=== PATIENT | female | born 1965 | race African-American/Black ===

== ENCOUNTER 2024-01-13 23:47 | Inpatient (IN) | payer OTHER ==
[2024-01-14] MEDS ORDERED: LOPERAMIDE HCL 2 MG CAPSULE PO PRN (00:20)
[2024-01-14] MEDS ORDERED: POLYETHYLENE GLYCOL (HEALTHYLAX) 3350 17 GM PACKET PO PRN (00:20)
[2024-01-14] MEDS ORDERED: BENZONATATE 200 MG CAPSULE PO PRN (00:20)
[2024-01-14] MEDS ORDERED: BENZOCAINE/MENTHOL (CHLORASEPTIC ) LOZENGE MM PRN (00:20)
[2024-01-14] MEDS ORDERED: DICYCLOMINE HCL 10 MG CAPSULE PO PRN (00:20)
[2024-01-14] MEDS ORDERED: NICOTINE POLACRILEX 4 MG GUM BUC PRN (00:20)
[2024-01-14] MEDS ORDERED: NALOXONE (NARCAN) HCL 4 MG/0.1 ML SPRAY NS PRN (00:20)
[2024-01-14] MEDS ORDERED: MAG HYDROX/AL HYDROX/SIMETH 30 ML UNIT-DOSE CUP PO PRN (00:20)
[2024-01-14] MEDS ORDERED: NALOXONE HCL 0.4 MG/ML VIAL IM PRN (00:20)
[2024-01-14] MEDS ORDERED: guaiFENesin 600 MG TABLET.ER (FP) PO PRN (00:20)
[2024-01-14] MEDS ORDERED: BISMUTH SUBSALICYLATE 524 MG/30 ML PO PRN (00:20)
[2024-01-14] MEDS ORDERED: MAGNESIUM HYDROX 2400MG/30ML ORAL SUSPENSION 30 ML CUP PO PRN (00:20)
[2024-01-14] MEDS ORDERED: ONDANSETRON *ODT* 4 MG TABLET SL PRN (00:20)
[2024-01-14] MEDS ORDERED: IBUPROFEN 400 MG TABLET (FP) PO PRN (00:20)
[2024-01-14 01:09] VITALS: BMI 17.4
[2024-01-14] MEDS: PRENATAL VITAMINS W/ FOLIC ACID TABLET (FP) PO SCH (10:39)
[2024-01-14] MEDS: NICOTINE 14 MG/24 HOURS TOPICAL PATCH TD SCH (10:43)
[2024-01-14] MEDS: diazePAM 5 MG TABLET PO SCH (11:44)
[2024-01-14 12:50] LABS: HEMATOCRIT 40.4 % (32.4-45.2); HEMOGLOBIN 13.5 GM/dL (10.7-15.3); MCH 32.2 pg (25.7-33.7); MCHC 33.4 g/dl (32.0-36.0); MEAN CELL VOLUME 96.3 fl (80-96); MEAN PLT VOLUME 8.2 fl (7.5-11.1); PLATELET COUNT 220 10^3/uL (134-434); RBC 4.19 M/mm3 (3.60-5.2); RDW 13.2 % (11.6-15.6); WHITE BLOOD COUNT 3.8 K/mm3 (4.0-10.0)
[2024-01-14 12:58] LABS: CHLORIDE 104 mmol/L (98-107); POTASSIUM 3.7 mmol/L (3.5-5.1); SODIUM 137 mmol/L (136-145)
[2024-01-14 13:01] LABS: CALCIUM 9.5 mg/dL (8.5-10.1)
[2024-01-14 13:02] LABS: ANION GAP 3 mmol/L (4-13); BLOOD UREA NITROGEN 7.3 mg/dL (7-18); CO2 30 mmol/L (21-32); GLUCOSE,RANDOM 99 mg/dL (74-106)
[2024-01-14 13:06] LABS: CREATININE 0.6 mg/dL (0.55-1.3); SGOT/AST 101 U/L (15-37); SGPT/ALT 43 U/L (13-61)
[2024-01-14 13:07] LABS: BILIRUBIN,TOTAL 0.7 mg/dL (0.2-1); TOT PROT 8.8 g/dl (6.4-8.2)
[2024-01-14 13:09] LABS: ALK PHOS 167 U/L (45-117)
[2024-01-14] MEDS: ALBUTEROL SO4 HFA INHALER IH PRN (13:09)
[2024-01-14] MEDS: THIAMINE 100 MG TABLET PO SCH (22:36)
[2024-01-14] MEDS: MELATONIN 5 MG TABLETS PO SCH (22:36)
[2024-01-14] MEDS: IBUPROFEN 600 MG TABLET (FP) PO PRN (22:37)
[2024-01-14] MEDS: QUEtiapine FUMARATE 50 MG TABLET PO SCH (22:37)
[2024-01-15] MEDS: QUEtiapine FUMARATE 50 MG TABLET PO SCH (22:33)
[2024-01-16] MEDS: diazePAM 5 MG TABLET PO SCH (05:46)
[2024-01-16] MEDS: diazePAM 5 MG TABLET PO PRN (10:12)
[2024-01-17] MEDS: diazePAM 5 MG TABLET PO SCH (06:18)
[2024-01-17] MEDS: ACETAMINOPHEN 325 MG TABLET (FP) PO PRN (11:26)
[2024-01-18] MEDS: diazePAM 5 MG TABLET PO ONE (05:50)
[2024-01-18 06:06] VITALS: RESP 16
[2024-01-18 09:08] VITALS: BP 129/64; PULSE 72; TEMP 98.7
== END 2024-01-18 10:42 | disposition other institution (70) | DRG 774 ==
LOC: YASAS 23:47 → Y3N 01-14 01:25
PROVIDERS: ADMIT Allergy & Immunology; ATTEND Surgery
PROC: HZ2ZZZZ Detoxification Services for Substance Abuse Treatment (ICD-10-PCS; principal; 2024-01-14)
DX: F10.230 Alcohol dependence with withdrawal, uncomplicated (principal); F14.20 Cocaine dependence, uncomplicated; F12.20 Cannabis dependence, uncomplicated; F17.210 Nicotine dependence, cigarettes, uncomplicated; F25.9 Schizoaffective disorder, unspecified; I10 Essential (primary) hypertension; J45.909 Unspecified asthma, uncomplicated; R76.8 Other specified abnormal immunological findings in serum; Z86.19 Personal history of other infectious and parasitic diseases; Z59.01 Sheltered homelessness
CPT/HCPCS: 36415; 80053; 80305; 80307; 85027; 86593; 86780; 93005; 93010